=== PATIENT | male | born 1960 | race Caucasian/White ===

== ENCOUNTER 2023-09-27 05:12 | Day surgery (SDC) | payer BC ==
[2023-09-21 11:36] VITALS: BMI 27.3
[2023-09-27 11:37] VITALS: TEMP 97.8
[2023-09-27 11:51] VITALS: BP 121/53; PULSE 55; RESP 17
== END 2023-09-27 12:05 | disposition home or self-care (01) ==
LOC: JASU-ENDO 05:12
PROVIDERS: ATTEND Internal Medicine Gastroenterology
PROC: 0DJD8ZZ Inspection of Lower Intestinal Tract, Via Natural or Artificial Opening Endoscopic (ICD-10-PCS; principal; 2023-09-27 10:00)
DX: K57.30 Diverticulosis of large intestine without perforation or abscess without bleeding (principal); K64.8 Other hemorrhoids